=== PATIENT | male | born 1975 | race Two or more races ===

== ENCOUNTER 2021-01-03 06:07 | Emergency (ER) | payer MEDICAID ==
[~2021-01-03] VITALS: Ht 172.7 cm; Wt 81.8 kg
[2021-01-03] MEDS ORDERED: ACETAMINOPHEN 500 MG TABLET PO ONE (06:30)
[2021-01-03 07:50] LABS: COVID AG,FIA SOURCE NASOPHARYNGEAL
[2021-01-03 08:09] LABS: INFLUENZA TYPE A NEGATIVE FOR TYPE A (NEGATIVE); INFLUENZA TYPE B NEGATIVE FOR TYPE B (NEGATIVE)
[2021-01-03 09:36] VITALS: BP 122/79
== END 2021-01-03 09:37 | disposition home or self-care (01) ==
LOC: EMS 06:11
DX: U07.1 COVID-19 (principal); E11.9 Type 2 diabetes mellitus without complications
CPT/HCPCS: 82962; 87426; 87804; 99283; U0003